=== PATIENT | female | born 1975 | race Caucasian/White ===

== ENCOUNTER 2018-05-20 20:08 | Emergency (ER) | payer MEDICAID ==
[~2018-05-20] VITALS: Ht 165.1 cm; Wt 93.0 kg
[2018-05-20 20:21] VITALS: BP 109/87
--- NOTE | 2018-05-20 20:24 | NUR ---
PT AMBULATORY TO ER LOBBY W/ STEADY GAIT IN STABLE CONDITION.
--- NOTE | 2018-05-20 21:53 | NUR ---
PT AMBULATED TO BED 2
--- NOTE | 2018-05-20 21:56 | NUR ---
PATIENT PRESENTS TO ED WITH C/O ABSCESS TO VAGINAL AREA GOING ON MORE THEN 2 YEARS. . PT STATES SHE WAS SEEN BY HER PCP BUT NO INTERVENTIONS WERE IMPLAMENTED. PATIENT STATES INTERCOURSE EXACERBATES PAIN .PATIENT DENIES N/V/D; SKIN IS PINK/WARM/DRY; AAOX4 WITH EVEN AND STEADY GAIT; LUNGS CLEAR BL; HR EVEN AND REGULAR; PT DENIES ANY FEVER, CP, SOB, OR COUGH AT THIS TIME; PATIENT STATES PAIN OF 8/10 AT THIS TIME; VSS; PATIENT POSITIONED FOR COMFORT; HOB ELEVATED; BEDRAILS UP X2; BED DOWN. ER MD MADE AWARE OF PT STATUS.
--- NOTE | 2018-05-20 22:38 | NUR ---
Female [employer] Buyer accompanied female patient for Pelvic Exam. BY DR. PATRICIO
[2018-05-20] MEDS ORDERED: IBUPROFEN 800 MG TAB PO ONE (22:40)
[2018-05-20 22:53] VITALS: BP 100/78
== END 2018-05-20 22:54 | disposition home or self-care (01) ==
LOC: MED 20:08
DX: N76.0 Acute vaginitis (principal)
CPT/HCPCS: 81025; 99283

== ENCOUNTER 2019-06-30 01:30 | Emergency (ER) | payer SELFPAY ==
[~2019-06-30] VITALS: Ht 165.1 cm; Wt 79.4 kg
[2019-06-30 01:35] VITALS: BP 132/87
--- NOTE | 2019-06-30 01:42 | NUR ---
PT TAKEN TO BED 5
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
[2019-06-30] MEDS: KETOROLAC 60 MG/2 ML VIAL IM ONE (02:12)
--- NOTE | 2019-06-30 02:55 | NUR ---
Dr. Morris examining patient.
--- NOTE | 2019-06-30 03:00 | NUR ---
PAIN REASSESSED; PT REPORTS 2/10 DECREASED PAIN. WILL CONTINUE TO OBSERVE.
[2019-06-30 03:10] VITALS: BP 132/87
== END 2019-06-30 03:14 | disposition home or self-care (01) ==
LOC: MED 01:30
DX: M54.89 Other dorsalgia (principal); V49.9XXA Car occupant (driver) (passenger) injured in unspecified traffic accident, initial encounter; Y93.89 Activity, other specified; Y92.488 Other paved roadways as the place of occurrence of the external cause; Y99.8 Other external cause status
CPT/HCPCS: 96372; 99283; J1885

== ENCOUNTER 2020-03-10 05:29 | Emergency (ER) | payer SELFPAY ==
[~2020-03-10] VITALS: Ht 162.6 cm; Wt 88.5 kg
[2020-03-10 05:40] VITALS: BP 139/89
--- NOTE | 2020-03-10 05:44 | NUR ---
PT AMBULATED TO BED 12 WITH STEADY GAIT.
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
--- NOTE | 2020-03-10 05:48 | NUR ---
PT AMBULATED TO RESTROOM. UA PROVIDED.
--- NOTE | 2020-03-10 06:09 | NUR ---
Abeba jones in ED - 03/10/20 at 0610 by RENEA PT TRNASFERRED TO CT VIA W/C.
--- NOTE | 2020-03-10 06:10 | NUR ---
PT TRANSFERRED TO CT VIA W/C.
--- NOTE | 2020-03-10 06:16 | NUR ---
PT RETURNED BACK FROM CT VIA W/C.
[2020-03-10 06:46] LABS: APPEARANCE,URINE CLEAR (CLEAR); BILIRUBIN,URINE NEGATIVE (NEGATIVE); BLOOD, URINE NEGATIVE (NEGATIVE); COLOR,URINE YELLOW (YELLOW); LEUKOCYTE ESTERASE ,URINE NEGATIVE (NEGATIVE); NITRITE, URINE NEGATIVE (NEGATIVE); PH,URINE 8.5 (5.0-9.0); UGLUCOSE NEGATIVE (NEGATIVE)
[2020-03-10 07:01] LABS: ALBUMIN 3.9 g/dL (3.4-5.0); ANION GAP 13.6 (8-16); CARBON DIOXIDE 26.3 mmol/L (21-32); CREATININE 0.8 mg/dL (0.6-1.3); POTASSIUM 3.9 mmol/L (3.5-5.1); TOTAL BILIRUBIN 0.2 mg/dL (0.0-1.0)
[2020-03-10 07:03] LABS: BASOPHILS % (AUTO) 0.8 % (0.0-2.0); EOSINOPHILS # (AUTO) 0.3 K/uL (0-0.4); EOSINOPHILS % (AUTO) 5.9 % (0.0-4.0); HEMATOCRIT 40.1 % (36-48); HEMOGLOBIN 13.4 g/dL (12.0-16.0); LYMPHOCYTES # (AUTO) 1.3 K/uL (2.5-16.5); LYMPHOCYTES % (AUTO) 25.1 % (20.5-51.1); MEAN CORPUSCULAR HEMOGLOBIN 31 pg (27-31); MEAN CORPUSCULAR HGB CONC 33 g/dL (33-37); MEAN CORPUSCULAR VOLUME 93.1 fL (80-94); MONOCYTES # (AUTO) 0.5 K/uL (0.8-1.0); MONOCYTES % (AUTO) 9.4 % (1.7-9.3); NEUTROPHILS % (AUTO) 58.8 % (42.2-75.2); PLATELET COUNT (AUTO) 304 K/uL (140-450); RED BLOOD CELL COUNT(AUTO) 4.31 MIL/uL (4.20-5.40); WHITE BLOOD COUNT (AUTO) 5.1 K/uL (4.8-10.8)
--- NOTE | 2020-03-10 07:14 | NUR ---
Pt report given to ROMAIN BRUNER. Transfer of care at this time.
--- NOTE | 2020-03-10 07:16 | NUR ---
RECEIVED REPORT FROM ROMAIN FOX. TRANSFER OF CARE AT THIS TIME
[2020-03-10 07:43] VITALS: BP 133/81
--- NOTE | 2020-03-10 07:44 | NUR ---
Patient discharged with v/s stable. Written and verbal after care instructions given and explained. Patient alert, oriented and verbalized understanding of instructions. Ambulatory with steady gait. All questions addressed prior to discharge. ID band removed. Patient advised to follow up with PMD. Rx of MIRALAX POWDER 1 CAPFUL AND IBUPROFEN 600MG given. Patient educated on indication of medication including possible reaction and side effects. Opportunity to ask questions provided and answered.
== END 2020-03-10 07:44 | disposition home or self-care (01) ==
LOC: MED 05:29
DX: K59.00 Constipation, unspecified (principal); D25.9 Leiomyoma of uterus, unspecified; Z90.49 Acquired absence of other specified parts of digestive tract
CPT/HCPCS: 36415; 80053; 81003; 81025; 83690; 84702; 85025; 99284

== ENCOUNTER 2021-11-30 10:16 | Emergency (ER) | payer MEDICAID ==
[~2021-11-30] VITALS: Ht 165.1 cm; Wt 89.4 kg
[2021-11-30 10:24] VITALS: BP 167/92
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
--- NOTE | 2021-11-30 10:32 | NUR ---
46 y/o female, pt states she fell 3 weeks ago and states she is unable to walk due to pain, c/o left knee pain, unable to bear much weight. area does not appear swollen, redness, or visible deformity. denies loc, syncope, or head/neck injury. during weigth evaluation, pt was able to bear minimal weight on left side. cap refill <3, tenderness with palpation around knee. pmh: denies nka med: ibuprofen
[2021-11-30] MEDS ORDERED: KETOROLAC 30 MG/ML VIAL IM ONE (11:30)
--- NOTE | 2021-11-30 13:39 | NUR ---
pt asked to wait in lobby at this time
[2021-11-30] MEDS ORDERED: IBUP-2213 PO (13:50)
[2021-11-30 15:05] VITALS: BP 155/91
--- NOTE | 2021-11-30 15:05 | NUR ---
Patient discharged with v/s stable. Written and verbal after care instructions ABOUT KNEE SPRAIN given and explained. Patient alert, oriented and verbalized understanding of instructions. Ambulatory with steady gait. All questions addressed prior to discharge. ID band removed. Patient advised to follow up with PMD. Rx of MOTRIN given. Patient educated on indication of medication including possible reaction and side effects. Opportunity to ask questions provided and answered.
== END 2021-11-30 15:05 | disposition home or self-care (01) ==
LOC: MED 10:16
DX: S83.92XA Sprain of unspecified site of left knee, initial encounter (principal); Z79.899 Other long term (current) drug therapy; W19.XXXA Unspecified fall, initial encounter; Y93.89 Activity, other specified; Y92.89 Other specified places as the place of occurrence of the external cause; Y99.8 Other external cause status
CPT/HCPCS: 29105; 73562; 96372; 99283; J1885